=== PATIENT | female | born 2000 | race Caucasian/White ===

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

== ENCOUNTER 2020-05-16 15:47 | Emergency (ER) | payer MEDICAID ==
[~2020-05-16] VITALS: Ht 154.9 cm; Wt 48.0 kg
[~2020-05-16 15:47] MED LIST: ONDA8TAB9 PO; PANT-47 PO
[2020-05-16 18:43] VITALS: BP 105/74
== END 2020-05-16 18:30 | disposition home or self-care (01) ==
LOC: ER 15:47
DX: M79.661 Pain in right lower leg (principal); R06.02 Shortness of breath; J45.909 Unspecified asthma, uncomplicated; Z98.890 Other specified postprocedural states; Z79.899 Other long term (current) drug therapy
CPT/HCPCS: 36415; 85379; 93971; 99284

== ENCOUNTER 2021-07-01 16:34 | Emergency (ER) | payer MEDICAID ==
[~2021-07-01] VITALS: Ht 154.9 cm; Wt 47.1 kg
[2021-07-01 17:37] LABS: BASOPHILS % (AUTO) 0.6 % (0-1); EOSINOPHILS # (AUTO) 0.1 X10'3 (0-0.9); EOSINOPHILS % (AUTO) 1.3 % (0-6); HEMATOCRIT 40.6 % (35.0-45.0); HEMOGLOBIN 13.3 g/dl (12.0-16.0); LYMPHOCYTES # (AUTO) 1.7 X10'3 (1.1-4.8); LYMPHOCYTES % (AUTO) 20.8 % (21-51); MEAN CORPUSCULAR HEMOGLOBIN 28.2 PG (27.0-31.0); MEAN CORPUSCULAR HGB CONC 32.8 g/dL (33.0-36.5); MEAN CORPUSCULAR VOLUME 85.9 FL (78-98); MEAN PLATELET VOLUME 8.2 FL (7.4-10.4); MONOCYTES # (AUTO) 0.5 X10'3 (0-0.9); MONOCYTES % (AUTO) 5.6 % (2-12); NEUTROPHILS % (AUTO) 71.7 % (42-75); PLATELET COUNT 251 X10'3 (140-440); RED BLOOD COUNT 4.73 X10'6 (4.20-5.60); RED CELL DISTRIBUTION WIDTH 13.8 % (11.5-14.5); WHITE BLOOD COUNT 8.3 X10'3 (4.5-11.0)
[2021-07-01 18:02] LABS: ALANINE AMINOTRANSFERASE 18 U/L (12-78); ALBUMIN 4.2 G/DL (3.4-5.0); ALBUMIN/GLOBULIN RATIO 1.1 (1.1-1.5); ALKALINE PHOSPHATASE 84 IU/L (20-180); ANION GAP 10 (8-16); ASPARTATE AMINO TRANSFERASE 14 U/L (10-37); BILIRUBIN,TOTAL 1.2 MG/DL (0.1-1.0); BLOOD UREA NITROGEN 6 MG/DL (7-18); BUN/CREATININE RATIO 7.6 (6.6-38.0); CALCIUM 8.9 MG/DL (8.5-10.1); CHLORIDE 111 MMOL/L (99-107); CREATININE 0.79 MG/DL (0.40-0.90); GLUCOSE 114 MG/DL (70-104); POTASSIUM 3.6 MMOL/L (3.5-5.1); SODIUM 146 MMOL/L (135-145); TOTAL CARBON DIOXIDE 25.1 MMOL/L (24-32); TOTAL PROTEIN 8.1 G/DL (6.4-8.2); eGFR > 90 ML/MIN
[2021-07-01 18:03] LABS: AMYLASE 54 U/L (25-115); LIPASE 85 U/L (73-393)
[2021-07-01 22:22] LABS: URINE HCG NEGATIVE (NEG)
[2021-07-01] MEDS ORDERED: ketorolac trometh. 30mg/ml inj. IV ONE (22:25)
[2021-07-01] MEDS ORDERED: iohexol 300mg/ml 100ml inj. ONE (22:40)
[2021-07-02 00:10] VITALS: BP 97/61
== END 2021-07-02 00:11 | disposition home or self-care (01) ==
LOC: ER 16:35
DX: R10.84 Generalized abdominal pain (principal); R11.0 Nausea; G43.909 Migraine, unspecified, not intractable, without status migrainosus; J45.909 Unspecified asthma, uncomplicated; Z98.890 Other specified postprocedural states; Z79.899 Other long term (current) drug therapy
CPT/HCPCS: 36415; 74177; 80053; 81025; 82150; 83690; 85025; 96374; 99285; J1885; Q9967

== ENCOUNTER 2022-01-01 22:08 | Emergency (ER) | payer MEDICAID ==
[~2022-01-01] VITALS: Ht 154.9 cm; Wt 48.3 kg
[2022-01-01 22:10] VITALS: BP 98/65
[2022-01-01] MEDS ORDERED: ondansetron 4mg rapidly disintigrating tab PO ONE (22:45)
[2022-01-01 23:14] LABS: BASOPHILS # (AUTO) 0.1 X10'3 (0-0.2); BASOPHILS % (AUTO) 1.5 % (0-1); EOSINOPHILS # (AUTO) 0.1 X10'3 (0-0.9); EOSINOPHILS % (AUTO) 0.7 % (0-6); HEMATOCRIT 38.9 % (35.0-45.0); HEMOGLOBIN 12.9 g/dl (12.0-16.0); LYMPHOCYTES # (AUTO) 1.2 X10'3 (1.1-4.8); MEAN CORPUSCULAR HEMOGLOBIN 28.6 PG (27.0-31.0); MEAN CORPUSCULAR HGB CONC 33.2 g/dL (33.0-36.5); MEAN CORPUSCULAR VOLUME 86.1 FL (78-98); MEAN PLATELET VOLUME 8.1 FL (7.4-10.4); MONOCYTES # (AUTO) 0.4 X10'3 (0-0.9); MONOCYTES % (AUTO) 5.7 % (2-12); NEUTROPHILS # (AUTO) 5.5 X10'3 (1.8-7.7); NEUTROPHILS % (AUTO) 75.1 % (42-75); PLATELET COUNT 251 X10'3 (140-440); RED BLOOD COUNT 4.52 X10'6 (4.20-5.60); RED CELL DISTRIBUTION WIDTH 13.5 % (11.5-14.5); WHITE BLOOD COUNT 7.3 X10'3 (4.5-11.0)
[2022-01-01 23:15] LABS: CLARITY,URINE CLEAR (Clear); COLOR,URINE YELLOW (Yellow); GLUCOSE, URINE NEGATIVE (Neg); KETONES,URINE NEGATIVE (Neg); LEUKOCYTE ESTERASE ,URINE NEGATIVE (Neg); NITRITES, URINE NEGATIVE (Neg); OCCULT BLOOD,URINE NEGATIVE (Neg); PH,URINE 6.5 (4.8-8.0); PROTEIN,URINE NEGATIVE (Neg); URINE HCG NEGATIVE (NEG); UROBILINOGEN,URINE 0.2 E.U/dL (0.2-1.0)
[2022-01-01 23:21] LABS: UA COLLECTION TYPE CLN CATCH MIDSTREAM
[2022-01-01 23:26] LABS: ALANINE AMINOTRANSFERASE 17 U/L (12-78); ALKALINE PHOSPHATASE 78 IU/L (46-116); ANION GAP 10 (8-16); ASPARTATE AMINO TRANSFERASE 17 U/L (10-37); BLOOD UREA NITROGEN 7 MG/DL (7-18); BUN/CREATININE RATIO 10.6 (6.6-38.0); CALCIUM 8.8 MG/DL (8.5-10.1); CHLORIDE 106 MMOL/L (99-107); CREATININE 0.66 MG/DL (0.40-0.90); GLUCOSE 105 MG/DL (70-104); POTASSIUM 3.7 MMOL/L (3.5-5.1); SODIUM 144 MMOL/L (135-145); TOTAL CARBON DIOXIDE 28.2 MMOL/L (24-32); TOTAL PROTEIN 7.9 G/DL (6.4-8.2); eGFR > 90 ML/MIN
== END 2022-01-02 02:58 | disposition left against medical advice (07) ==
LOC: ER 22:09
DX: Z53.21 Procedure and treatment not carried out due to patient leaving prior to being seen by health care provider (principal)
CPT/HCPCS: 80053; 81003; 81025; 85025

== ENCOUNTER 2022-08-10 14:22 | Emergency (ER) | payer MEDICAID ==
[~2022-08-10] VITALS: Ht 154.9 cm; Wt 49.0 kg
[2022-08-10 15:41] LABS: BASOPHILS % (AUTO) 0.2 % (0-1); EOSINOPHILS % (AUTO) 0.3 % (0-6); HEMATOCRIT 39.3 % (35.0-45.0); HEMOGLOBIN 12.8 g/dl (12.0-16.0); LYMPHOCYTES # (AUTO) 0.2 X10'3 (1.1-4.8); LYMPHOCYTES % (AUTO) 2.9 % (21-51); MEAN CORPUSCULAR HEMOGLOBIN 27.7 PG (27.0-31.0); MEAN CORPUSCULAR HGB CONC 32.5 g/dL (33.0-36.5); MEAN CORPUSCULAR VOLUME 85.4 FL (78-98); MEAN PLATELET VOLUME 8.4 FL (7.4-10.4); MONOCYTES # (AUTO) 0.7 X10'3 (0-0.9); NEUTROPHILS # (AUTO) 5.3 X10'3 (1.8-7.7); NEUTROPHILS % (AUTO) 85.6 % (42-75); PLATELET COUNT 184 X10'3 (140-440); RED BLOOD COUNT 4.61 X10'6 (4.20-5.60); RED CELL DISTRIBUTION WIDTH 14.3 % (11.5-14.5); WHITE BLOOD COUNT 6.2 X10'3 (4.5-11.0)
[2022-08-10 15:58] LABS: ALANINE AMINOTRANSFERASE 17 U/L (12-78); ALBUMIN 4.2 G/DL (3.4-5.0); ALBUMIN/GLOBULIN RATIO 1.1 (1.1-1.5); ALKALINE PHOSPHATASE 78 IU/L (46-116); ANION GAP 10 (8-16); ASPARTATE AMINO TRANSFERASE 22 U/L (10-37); BILIRUBIN,TOTAL 0.9 MG/DL (0.1-1.0); BLOOD UREA NITROGEN 5 MG/DL (7-18); BUN/CREATININE RATIO 6.8 (6.6-38.0); CALCIUM 9.4 MG/DL (8.5-10.1); CHLORIDE 103 MMOL/L (99-107); CREATININE 0.74 MG/DL (0.40-0.90); GLUCOSE 104 MG/DL (70-104); LIPASE 67 U/L (73-393); POTASSIUM 3.5 MMOL/L (3.5-5.1); SODIUM 139 MMOL/L (135-145); TOTAL CARBON DIOXIDE 25.7 MMOL/L (24-32); eGFR > 90 ML/MIN
[2022-08-10] MEDS ORDERED: normal saline 1000ML IV soln IVB ONE (18:35)
[2022-08-10] MEDS ORDERED: proCHLORperazine 10 MG/2 ml inj IV ONE (18:35)
[2022-08-10 19:35] VITALS: BP 100/48
[2022-08-10 20:51] LABS: CLARITY,URINE SLIGHTLY CLOUDY (Clear); COLOR,URINE YELLOW (Yellow); GLUCOSE, URINE NEGATIVE (Neg); KETONES,URINE 40 mg/dl (Neg); LEUKOCYTE ESTERASE ,URINE NEGATIVE (Neg); NITRITES, URINE NEGATIVE (Neg); OCCULT BLOOD,URINE NEGATIVE (Neg); PH,URINE 7.5 (4.8-8.0); PROTEIN,URINE NEGATIVE (Neg); UROBILINOGEN,URINE 0.2 E.U/dL (0.2-1.0)
[2022-08-10 20:52] LABS: URINE HCG NEGATIVE (NEG)
[2022-08-10 20:53] LABS: UA COLLECTION TYPE CLN CATCH MIDSTREAM
[2022-08-10 21:16] LABS: MUCUS STRANDS MANY /LPF (Neg); SQUAMOUS EPITHELIAL CELL,UR MODERATE /LPF (FEW)
[2022-08-10 21:17] LABS: BACTERIA,URINE 1+ /HPF (Neg); WBC,URINE 0-4 /HPF (0-4)
[2022-08-10] MEDS ORDERED: HYDROcodone/acetaminophen 10/325mg tab PO ONE (21:45)
[2022-08-10] MEDS ORDERED: ONDA4TAB12 PO (21:51)
[2022-08-10] MEDS ORDERED: HYDR-3965 PO (21:51)
== END 2022-08-10 22:05 | disposition home or self-care (01) ==
LOC: ER 14:23
DX: B34.9 Viral infection, unspecified (principal); R11.2 Nausea with vomiting, unspecified; G43.909 Migraine, unspecified, not intractable, without status migrainosus; J45.909 Unspecified asthma, uncomplicated; Z98.890 Other specified postprocedural states; Z79.899 Other long term (current) drug therapy
CPT/HCPCS: 36415; 80053; 81001; 81025; 83690; 85025; 96361; 96374; 99283; J0780; J7030

== ENCOUNTER 2025-01-01 21:33 | Emergency (ER) | payer MEDICAID ==
[~2025-01-01] VITALS: Ht 154.9 cm; Wt 46.8 kg
[~2025-01-01 21:33] MED LIST changes: +ONDA-243 PO
[2025-01-01 23:25] LABS: BILIRUBIN,URINE NEGATIVE (Neg); CLARITY,URINE CLEAR (Clear); COLOR,URINE YELLOW (Yellow); GLUCOSE, URINE NEGATIVE (Neg); KETONES,URINE >=80 mg/dl (Neg); LEUKOCYTE ESTERASE ,URINE NEGATIVE (Neg); NITRITES, URINE NEGATIVE (Neg); OCCULT BLOOD,URINE NEGATIVE (Neg); PH,URINE 8.5 (4.8-8.0); PROTEIN,URINE NEGATIVE (Neg); UROBILINOGEN,URINE 0.2 E.U/dL (0.2-1.0)
[2025-01-01 23:27] LABS: UA COLLECTION TYPE CLN CATCH MIDSTREAM
[2025-01-01] MEDS: normal saline 1000ml 1,000 ML IV ONE (23:39)
[2025-01-01] MEDS: acetaminophen 325mg tablet PO ONE (23:40)
[2025-01-01] MEDS: ketorolac trometh 15mg/ml vial 15 MG/ML ML IV ONE (23:42)
[2025-01-02] LABS: BASOPHILS % (AUTO) 0.1 % (0-1); EOSINOPHILS % (AUTO) 0 % (0-6); HEMATOCRIT 37.3 % (35.0-45.0); HEMOGLOBIN 12.6 g/dl (12.0-16.0); LYMPHOCYTES # (AUTO) 0.5 X10'3 (1.1-4.8); LYMPHOCYTES % (AUTO) 4.3 % (21-51); MEAN CORPUSCULAR HEMOGLOBIN 29.5 PG (27.0-31.0); MEAN CORPUSCULAR HGB CONC 33.7 g/dL (33.0-36.5); MEAN CORPUSCULAR VOLUME 87.6 FL (78-98); MEAN PLATELET VOLUME 8.2 FL (7.4-10.4); MONOCYTES # (AUTO) 0.5 X10'3 (0-0.9); MONOCYTES % (AUTO) 4.3 % (2-12); NEUTROPHILS # (AUTO) 10.7 X10'3 (1.8-7.7); NEUTROPHILS % (AUTO) 91.3 % (42-75); PLATELET COUNT 201 X10'3 (140-440); RED BLOOD COUNT 4.26 X10'6 (4.20-5.60); RED CELL DISTRIBUTION WIDTH 13.2 % (11.5-14.5); WHITE BLOOD COUNT 11.7 X10'3 (4.5-11.0)
[2025-01-02 00:31] LABS: ALANINE AMINOTRANSFERASE 17 U/L (12-78); ALKALINE PHOSPHATASE 64 IU/L (46-116); ANION GAP 8 (8-16); ASPARTATE AMINO TRANSFERASE 13 U/L (10-37); BILIRUBIN,TOTAL 1.7 MG/DL (0.1-1.0); BLOOD UREA NITROGEN 6 MG/DL (7-18); BUN/CREATININE RATIO 8.2 (10.0-20.0); CALCIUM 8.8 MG/DL (8.5-10.1); CHLORIDE 103 MMOL/L (99-107); CREATININE 0.73 MG/DL (0.40-0.90); GLUCOSE 96 MG/DL (70-104); POTASSIUM 3.6 MMOL/L (3.5-5.1); SODIUM 138 MMOL/L (135-145); TOTAL PROTEIN 8.1 G/DL (6.4-8.2); eCRCL 88 ML/MIN; eGFR > 90 ML/MIN
[2025-01-02] MEDS: ibuprofen tablet 400 MG TABLET PO ONE (01:33)
[2025-01-02] MEDS ORDERED: iohexol 300mg/ml 100ml inj. ONE (01:45)
[2025-01-02] MEDS: normal saline 1000ml 1,000 ML IV ONE (02:04)
[2025-01-02 02:06] LABS: URINE HCG NEGATIVE (NEG)
[2025-01-02] MEDS: morphine 2 MG/ML inj. syringe IV ONE (02:42)
[2025-01-02] MEDS: diatr meglu/diatrizoate 30ml oral sol.-(3 dose) bottle PO SCH (05:13)
[2025-01-02] MEDS ORDERED: IBUP-24 PO (08:51)
[2025-01-02] MEDS ORDERED: ACET-2006 PO (08:51)
[2025-01-02] MEDS: ketorolac trometh 15mg/ml vial 15 MG/ML ML IV ONE (09:00)
[2025-01-02 09:04] VITALS: BP 94/55; PULSE 80; RESP 14; TEMP 98.2; O2SAT 98
== END 2025-01-02 09:12 | disposition home or self-care (01) ==
LOC: ER 21:34
DX: R10.31 Right lower quadrant pain (principal); B34.9 Viral infection, unspecified; G43.909 Migraine, unspecified, not intractable, without status migrainosus; J45.909 Unspecified asthma, uncomplicated; Z20.822 Contact with and (suspected) exposure to COVID-19; Z98.890 Other specified postprocedural states
CPT/HCPCS: 36415; 71045; 74176; 76856; 80053; 81003; 81025; 83605; 84145; 85025; 87040; 87502; 87503; 87811; 93976; 96361; 96374; 96375; 96376; 99285; J1885; J2270; J7030; Q9963; Q9967

== ENCOUNTER 2025-09-29 12:07 | Emergency (ER) | payer MEDICAID ==
[~2025-09-29] VITALS: Ht 154.9 cm; Wt 52.1 kg
[~2025-09-29 12:07] MED LIST changes: +IBUP-24 PO
--- NOTE | 2025-09-29 12:49 | Physician Documentation ---
History of Present Illness ~ Chief Complaint: Allergic Reaction Stated Complaint: ALLERGIC REACTION Time Seen by MD: 12:28 OK to notify your PCP?: Yes Primary Medical Doctor: Brent Sanon Source: patient Mode of Arrival: POV Exam Limitations: no limitations HPI Reports that she started taking Wellbutrin on 08/22/2025 and 3 weeks after she developed full body itching and hives. She reports that she was seen by her prescribing doctor 2 days ago and was told that it is likely not due to the Wellbutrin but she could stop taking it if she wanted to. Patient stopped taking the medication on and has not had a dose for Wednesday or today. She reports that last week she was seen at an [facility] and was prescribed Benadryl and 4 days of prednisone although it did not work. She was still taking Benadryl during that time though. She has tried using topical Benadryl as well as hydrocortisone cream with no relief. She reports that since stopping the Wellbutrin she has not noticed her symptoms decrease. Medication Reconciliation Allergies: Coded Allergies: No Known Allergies (Unverified , 09/29/25) Scheduled Ibuprofen (Advil), 400 MG PO Q6H Pantoprazole Sodium (PROTONIX tablet), 1 TAB PO DAILY Prednisone (Prednisone), 1 TAB PO DAILY Scheduled PRN Hydroxyzine Hcl* (Atarax*), 1 TAB PO HS PRN for itching ONDANSETRON ODT 4mg tablet (Ondansetron Odt), 1 TABLET PO Q8H PRN for NAUSEA Ondansetron (Zofran Odt), 8 MG PO QID PRN for nausea/vomiting Past Medical History Past Medical History: Migraine, Asthma, *PSYCH* Past Surgical History: abdominal surgery, orthopedic surgeries, other Other Past Surgical History: perforated bowel as infant Lives with: Mother Lives In: Home Occupation: student Review of Systems All Other Systems at this time: Reviewed and Negative Physical Exam Vital Signs: RN Vital Signs have been reviewed: Yes, Temperature: 98.3, Source: Temporal, Heart Rate: 96, Respiratory Rate: 15, BP: 129/84, Pulse Oximetry: 98, Weight: 52.100 Oxygen Flow Rate: 0 Pulse Oximetry Reflects: adequate oxygenation Physical Exam General: Alert, no distress. HEENT: No injection, moist mucous membranes. Neck: Full range of motion. Respiratory: No respiratory distress, equal chest rise and fall. Lungs clear bilaterally. Airway clear. Chest: No accessory muscle use. Cardiovascular: Regular rate and rhythm. Gastrointestinal: Nondistended. Extremities: Normal range of motion, no deformity. Neurologic: Oriented x4. Psychiatric: Normal mood and affect. Skin: There is erythematous raised wheals due to scratching appears to be dermatographia on her bilateral arms and chest. Progress Results/Orders Reviewed/noted all lab results: Yes Results/Orders Completed Orders - LIZY FOFANA [employer] Methylprednisolone Sod Succ (Solumedrol (09/29/25 12:45) Diphenhydramine Capsule (Benadryl Capsul (09/29/25 12:50) Vital Signs 09/29/25 09/29/25 09/29/25 12:09 12:35 12:35 Temp 98.3 Pulse 96 Resp 18 15 B/P (MAP) 129/84 Pulse Ox 100 98 O2 Delivery Room Air* O2 Flow Rate 0 0 FiO2 21 Medical Decision Making Additional information obtaine: old records Findings She was given treatment last week for possible allergic reaction but was still taking the Wellbutrin. The reaction started 3 weeks after starting the Wellbutrin. She has since discontinued that for the past 2 days but has not had any symptom decrease. I have placed her on a longer course of prednisone as well as given a Solu-Medrol injection and Benadryl injection here in the department. She reports that the itching is worse at night so I prescribed hydroxyzine which she can use as needed at bedtime physical exam reveals dermatographia from her itching but there is no signs of infection or rash present. Airway is clear. Speaking in full sentences. Vital signs are stable. Differential Dx:Considerations: Include: Anaphylaxis, Angioedema, Bronchospasm, Respiratory failure, Shock Departure Disposition: 01 HOME / SELF CARE / HOMELESS Impression: Primary Impression: Acute allergic reaction Condition: Stable Discharge Instructions: Tata, [id number] Additional Instructions: Please do not take the Wellbutrin. Follow up with your regular doctor next week. Start taking the prednisone pack tomorrow. Today you were given a Solu- Medrol injection as well as Benadryl. You can use the hydroxyzine at nighttime to help you sleep. Referrals: NO PRIMARY CARE PROVIDER (PCP) Prescriptions Prednisone (Prednisone) 10 Mg Tablet 1 TAB PO DAILY for 5 Days, #19 TAB Day 1-2: 4 tablets once daily by mouth for 2 days Day 3-4: 3 tablet once daily by mouth for 2 days Day 5-6: 2 tablet once daily by mouth for 2 days Day 7: 1 tablet once daily by mouth for 1 day Prov: LIZY FOFANA 09/29/25 Hydroxyzine Hcl* (Atarax*) 25 Mg Tablet 1 TAB PO HS PRN for itching for 10 Days, #10 TAB Prov: LIZY FOFANA 09/29/25 Education Educated: Patient Educated regarding: diagnosis, treatment, prognosis, need for follow up Additional Comment Medical Screen Exam This patient recieved a medical screening examination. After reviewing the individual's medical complaints with presenting symptoms and performing an appropriate physical examination, it was determined that no immediate life- threatening emergency medical condition is present. This individual is also not a women having contractions. Signature Scribe Signature: . Attestation: Scribed for Lizy Fofana by Lizy Mauro NP . 09/29/25 12:48 Parts of this note were created using [employer] voice recognition software program. While efforts were made to correct any mistakes made by this voice recognition software program, nonsensical phrases may remain in this note. In addition, there may be errors and syntax, grammar, content and spelling. LIZY FOFANA Sep 29, 2025 12:49
[2025-09-29] MEDS ORDERED: PRED10TA23 PO (12:56)
[2025-09-29] MEDS ORDERED: HYDR-3686 PO (12:56)
[2025-09-29 13:44] VITALS: BP 104/64; PULSE 69; RESP 16; TEMP 98.3; O2SAT 99
== END 2025-09-29 13:47 | disposition home or self-care (01) ==
LOC: ER 12:07
DX: L29.9 Pruritus, unspecified (principal); T43.295A Adverse effect of other antidepressants, initial encounter; G43.909 Migraine, unspecified, not intractable, without status migrainosus; Z98.890 Other specified postprocedural states; Z79.899 Other long term (current) drug therapy; Y92.89 Other specified places as the place of occurrence of the external cause
CPT/HCPCS: 96372; 96374; 99284; J1200; J2919